=== PATIENT | female | born 1990 ===

== ENCOUNTER 2020-09-01 03:05 | Outpatient (CLI) | payer OTHER ==
[2020-09-01 03:34] VITALS: BP 120/74
== END 2020-09-01 04:25 | disposition home or self-care (01) ==
LOC: TRG 03:05 → APU 03:09 → TRG 04:25
PROVIDERS: ATTEND Obstetrics & Gynecology
DX: O42.913 Preterm premature rupture of membranes, unspecified as to length of time between rupture and onset of labor, third trimester (principal); Z3A.38 38 weeks gestation of pregnancy
CPT/HCPCS: 59025

== ENCOUNTER 2020-09-13 17:53 | Inpatient (IN) | payer OTHER ==
[2020-09-13] MEDS ORDERED: BICITRA ORAL LIQD 30ML PO SCH (19:58)
[2020-09-13] MEDS ORDERED: METOCLOPRAMIDE 10 MG/2 ML INJ IV SCH (19:58)
[2020-09-13] MEDS ORDERED: FAMOTIDINE 20 MG/2 ML INJ IV SCH (19:58)
[2020-09-13] MEDS ORDERED: ceFAZolin/Water 2 GM/20 ML 2 GM/20 ML SYRINGE IV NR (20:00)
[2020-09-13] MEDS ORDERED: OXYTOCIN DRIP 30 UNITS/500 ML BAG IV SCH (20:00)
--- NOTE | 2020-09-13 20:01 | Ultrasound Report ---
ULTRASOUND OBSTETRIC LIMITED ULTRASOUND BIOPHYSICAL PROFILE INDICATION / CLINICAL INFORMATION: Evaluate well being. COMPARISON: None available. FINDINGS: BREATHING MOVEMENT = 0 GROSS BODY MOVEMENT = 2 TONE = 2 QUALITATIVE AMNIOTIC FLUID VOLUME = 2 TOTAL BIOPHYSICAL SCORE = 6/8 AMNIOTIC FLUID INDEX (cm) = 11.2 PRESENTATION: Breech. HEART RATE (beats per minute): 141 ADDITIONAL FINDINGS: None. IMPRESSION: 1. Biophysical Score = 6/8 2. Breech presentation. 3. Normal KELLEY of 11.2 cm. Signer Name: Best Galloway MD Signed: 09/13/2020 7:56 PM Workstation Name: [id number]
--- NOTE | 2020-09-13 20:03 | History and Physical Report ---
History of Present Illness Date of examination: 09/13/20 Date of admission: 09/13/2020 Chief complaint: breech at term History of present illness: 30 yo at 40 weeks gestation c/b hx prior c/s x 1 with successful , Class I Obesity, hx cholecystectomy, posive genetic screening for down syndrome with normal sono presenting from clinic incidental breech presentation for repeat c section. Labs reviewed GBS neg Past History Past Medical History: no pertinent history Past Surgical History: cholecystectomy, section (x1) Family/Genetic History: none Social history: no significant social history - Obstetrical History : 3 Para: 2 Hx # Term Pregnancies: 2 Number of Living Children: 2 Medications and Allergies Allergies Allergy/AdvReac Type Severity Reaction Status Date / Time No Known Allergies Allergy Verified 01/13/14 06:18 Home Medications Medication Instructions Recorded Confirmed Last Taken Type HYDROcodone/APAP 5-325 [[place] 1 each PO Q6HR PRN #20 tablet 01/13/14 09/01/20 Unknown Rx 5-325 mg TAB] Ibuprofen [Motrin] 800 mg PO TID PRN #20 tablet 01/13/14 09/01/20 Unknown Rx Promethazine [Phenergan] 25 mg PO Q6H PRN #20 tablet 01/13/14 09/01/20 Unknown Rx Tamsulosin [Flomax] 0.4 mg PO QDAY #5 cap 01/13/14 09/01/20 Unknown Rx Review of Systems All systems: negative (expect HPI) - Vital Signs Vital signs: Vital Signs Pulse Pulse Ox 110 H 97 09/13/20 18:12 09/13/20 18:12 Temp Pulse Resp BP Pulse Ox 98.6 F 93 H 20 125/73 98 09/13/20 18:14 09/13/20 19:55 09/13/20 18:14 09/13/20 18:14 09/13/20 19:55 - Physical Exam Abdomen: Positive: normal appearance, normal bowel sounds, other (gravid) - Obstetrical FHR: category 1 Uterine Contraction Monitor Mode: External Results All other labs normal. Assessment and Plan - Patient Problems (1) Breech presentation Current Visit: Yes Status: Acute Plan to address problem: Hx c/s x 1 week successful , incidentally found to be breech. KELLEY wnl. However BPP 6/10. Given term gestation, will proceed with delivery --To OR for repeat c section for breech presentation with abnormal BPP --Desires future fertility, consented in the chart
[2020-09-13] MEDS: LACTATED RINGERS 1,000 ML IV SCH ×2 (20:05→21:58)
--- NOTE | 2020-09-13 20:06 | Anesthesia Day of Surgery ---
Anesthesia Day of Surgery - Day of Surgery Patient Examined: Yes Patient H&P Reviewed: Yes Patient is NPO: Yes Beta Blockers: No Cardiac Clearance: No Pulmonary Clearance: No Rito's Test: N/A
[2020-09-13] MEDS ORDERED: NALOXONE 0.4 MG/1 ML INJ IV PRN (20:07)
[2020-09-13] MEDS ORDERED: HYDROmorphone 1 MG/1 ML INJ IV PRN (20:07)
[2020-09-13] MEDS ORDERED: ONDANSETRON 4 MG/2 ML INJ IV PRN (20:07)
--- NOTE | 2020-09-13 20:07 | Anesthesia Consultation ---
Anesthesia Consult and Med Hx Date of service: 09/13/20 - Airway Anesthetic Teeth Evaluation: Good ROM Head & Neck: Adequate Mental/Hyoid Distance: Adequate Mallampati Class: Class II Intubation Access Assessment: Probably Good - Pulmonary Exam CTA: Yes - Cardiac Exam Cardiac Exam: RRR - Pre-Operative Health Status ASA Pre-Surgery Classification: ASA2 Proposed Anesthetic Plan: Spinal - Pre-Anesthesia Comment Pre-Anesthesia Comments: gallbladder, csection 2016, no anesthesia complications - Pulmonary Hx Smoking: No Hx Asthma: No Hx Respiratory Symptoms: No SOB: No COPD: No Home Oxygen Therapy: No Hx Pneumonia: No Hx Sleep Apnea: No - Cardiovascular System Hx Hypertension: No Hx Coronary Artery Disease: No Hx Heart Attack/AMI: No Hx Angina: No Hx Percutaneous Transluminal Coronary Angioplasty (PTCA): No Hx Cardia Arrhythmia: No Hx Pacemaker: No Hx Internal Defibrillator: No Hx Valvular Heart Disease: No Hx Heart Murmur: No Hx Peripheral Vascular Disease: No - Central Nervous System Hx Neuromuscular Disorder: No Hx Seizures: No CVA: No Hx Back Pain: No Hx Psychiatric Problems: No - Gastrointestinal Hx Ulcer: No Hx Gastroesophageal Reflux Disease: Yes - Endocrine Hx Renal Disease: No Hx End Stage Renal Disease: No Hx Cirrhosis: No Hx Liver Disease: No Hx Insulin Dependent Diabetes: No Hx Non-Insulin Dependent Diabetes: No Hx Thyroid Disease: No Hx Hypothyroidism: No Hx Hyperthyroidism: No - Hematic Hx Anemia: No Hx Sickle Cell Disease: No - Other Systems Hx Alcohol Use: No Hx Substance Use: No Hx Cancer: No Hx Obesity: Yes
[2020-09-13 20:32] LABS: Basophils % (Auto) 0.2 % (0.0-1.8); Eosinophils % (Auto) 0.3 % (0.0-4.3); Hematocrit 39.3 % (30.3-42.9); Hemoglobin 13.8 gm/dl (10.1-14.3); Lymphocytes # (Auto) 2.1 K/mm3 (1.2-5.4); Lymphocytes % (Auto) 21.5 % (13.4-35.0); Mean Corpuscular HGB Conc 35 % (30-34); Mean Corpuscular Volume 96 fl (79-97); Monocytes # (Auto) 0.5 K/mm3 (0.0-0.8); Monocytes % (Auto) 5.4 % (0.0-7.3); Platelet Count 117 K/mm3 (140-440); Red Blood Count 4.11 M/mm3 (3.65-5.03); Red Cell Distribution Width 14.1 % (13.2-15.2)
[2020-09-14] MEDS ORDERED: KETOROLAC 30 MG/1 ML INJ ONE (00:02)
[2020-09-14] MEDS ORDERED: BUPIVACAINE/PF (0.5%) 5 MG/1 ML 30 ML VIAL INFILTRATI ONE (00:02)
[2020-09-14] MEDS ORDERED: ONDANSETRON 4 MG/2 ML INJ ONE (00:02)
[2020-09-14] MEDS ORDERED: DEXMEDETOMIDINE 200 MCG/2 ML VIAL IV ONE (00:02)
[2020-09-14] MEDS ORDERED: BUPIVACAINE /DEX-WATER 0.75% (2 ML) AMPULE INFILTRATI ONE (00:07)
[2020-09-14] MEDS ORDERED: LACTATED RINGERS 1000 ML IV SOLN IV ONE (00:14)
[2020-09-14] MEDS ORDERED: ONDANSETRON 4 MG/2 ML INJ IV ONE (00:30)
[2020-09-14] MEDS ORDERED: ceFAZolin/STERILE WATER 2 GM/20 ML SYRINGE IV ONE (00:30)
[2020-09-14] MEDS ORDERED: PHENYLEPHRINE/NS 1,000 MCG/10 ML SYRINGE (OR USE) IV ONE (00:36)
[2020-09-14] MEDS ORDERED: KETOROLAC 30 MG/1 ML INJ IV ONE (01:10)
--- NOTE | 2020-09-14 01:41 | Procedure Note ---
OB Delivery Note - Delivery Date of Delivery: 09/14/20 Surgeon: ELO LYNN JR Estimated blood loss: other (600cc) - Section Preop diagnosis: repeat , breech Postop diagnosis: same section procedure: section, repeat low transverse Disposition: PACU Complications: none Narrative: Indication: 30-year-old at 40 weeks gestation c/b Class I Obesity presenting from clinic with malpresentation for repeat . Findings: Normal uterus, tubes and ovaries. Clear fluid. No nuchal cord. Delivery of male at 0057 Height 19 inches Weight 3307 g Apgars 8/8 EBL 600 cc UOP 100 cc IVF 800 cc Procedure: Patient was taken to the operating room prepped and draped in the usual sterile fashion. Pfannenstiel skin incision was made and carried down to the underlying fascia. Fascia was incised and the incision was distended bilaterally. Rectus fascia was dissected off the rectus muscle superiorly and inferiorly. Peritoneum was identified and entered. Peritoneal incision extended superiorly and inferiorly. The bladder was visualized. The bladder blade was placed. Uterine hysterotomy incision was made and extended bilaterally. The baby was delivered breech starting with the legs, truck, right arm, left arm, then head. Baby was bulb suction at delivery. The cord was cut and clamped and handed off to the team. The placenta was delivered spontaneously. The uterus was exteriorized and cleared of all clots and debris. Uterine incision was closed with a 0 Vicryl in a running locked fashion. Good hemostasis was noted. The urine was noted to be clear. Uterus, tubes, and ovaries were returned to the abdominal cavity. Bilateral gutters were cleared and the abdomen and pelvis were irrigated. Good hemostasis noted. The rectus muscle was reapproximated with 2-0 Vicryl. Attention was directed towards the rectus fascia which was reapproximated with 0 PDS in a running fashion. The subcutaneous tissue was irrigated and reapproximated with 2-0 Vicryl in a running fashion. Skin was closed with a 4-0 Vicryl in a subcuticular fashion. The procedure was completed and the patient tolerated the procedure well. All instruments and lap counts were correct x2. - A at 1 minute: 8 at 5 minutes: 8 Infant Gender: Male
[2020-09-14] MEDS ORDERED: ONDANSETRON 4 MG/2 ML INJ IV PRN (01:42)
[2020-09-14] MEDS ORDERED: MAGNESIUM HYDROXIDE (MOM) ORAL LIQD UDC PO PRN (01:42)
[2020-09-14] MEDS ORDERED: PROMETHAZINE 25 MG RECT SUPP PR PRN (01:42)
[2020-09-14] MEDS ORDERED: NALOXONE 0.4 MG/1 ML INJ IV PRN (01:42)
[2020-09-14] MEDS ORDERED: SENNOSIDES 8.6 MG TAB PO PRN (01:42)
[2020-09-14] MEDS ORDERED: LANOLIN/ZINC/DIMETHICONE (LANSINOH) 7 GM TP PRN (01:42)
[2020-09-14] MEDS ORDERED: HYDROCORTISONE 25 MG RECTAL SUPP PR PRN (01:42)
[2020-09-14] MEDS ORDERED: WITCH HAZEL/ GLYCERIN PAD TP PRN (01:42)
[2020-09-14] MEDS ORDERED: MORPHINE 4 MG/1 ML INJ IV PRN (01:42)
[2020-09-14] MEDS ORDERED: OXYTOCIN DRIP 30 UNITS/500 ML BAG IV SCH (02:00)
--- NOTE | 2020-09-14 02:00 | Progress Note ---
Spinal Anesthesia Block - Spinal Anesthesia Block Start Time: 00:25 Stop Time: 00:28 Performed by:: LINDA NUR Procedure: Patient IDed, H&P reviewed, all questions and concerns were answered, and consent was signed. Timeout was performed at bedside. Patient in sitting position. Sterile prep and drape was performed. [3] ml of 1% lidocaine skin wheal at L[3]- L [4]. Needle introducer advanced. 25 gauge spinal needle advanced. Clear, free flowing CSF. negative blood, negative paresthesia. Spinal dose given. All needles removed. Patient tolerated procedure.
--- NOTE | 2020-09-14 02:02 | Progress Note ---
Subjective Date of service: 09/14/20 Principal diagnosis: Bilateral TAP Block for postop pain Interval history: Patient consented for TAP block for post surgical pain management. Patient identified, monitors placed, and time out performed. TAP identified bilaterally via ultrasound. Skin prepped bilaterally with [chlorhexidine] and [22g stimuplex] needle advanced to the TAP. [Marcaine 0.2% 35ml] injected under ultrasound guidance on the [left] side. [Marcaine 0.2% 35ml] injected under u ltrasound guidance on the [right] side. Negative Aspiration. Objective - Constitutional Vitals: Vital Signs - 12hr 09/13/20 09/13/20 09/13/20 18:12 18:13 18:14 Temperature 98.6 F Pulse Rate 110 H 100 H 103 H Respiratory 20 Rate Blood Pressure 125/73 Blood Pressure 125/73 [Left] O2 Sat by Pulse 97 96 Oximetry 09/13/20 09/13/20 09/13/20 18:17 18:22 18:27 Temperature Pulse Rate 90 95 H 97 H Respiratory Rate Blood Pressure Blood Pressure [Left] O2 Sat by Pulse 97 96 96 Oximetry 09/13/20 09/13/20 09/13/20 18:32 18:37 18:42 Temperature Pulse Rate 103 H 96 H 94 H Respiratory Rate Blood Pressure Blood Pressure [Left] O2 Sat by Pulse 96 96 97 Oximetry 09/13/20 09/13/20 09/13/20 19:35 19:40 19:45 Temperature Pulse Rate 99 H 99 H 103 H Respiratory Rate Blood Pressure Blood Pressure [Left] O2 Sat by Pulse 98 98 98 Oximetry 09/13/20 09/13/20 09/13/20 19:50 19:55 20:00 Temperature Pulse Rate 97 H 93 H 88 Respiratory Rate Blood Pressure Blood Pressure [Left] O2 Sat by Pulse 98 98 98 Oximetry 09/13/20 20:05 Temperature Pulse Rate 100 H Respiratory Rate Blood Pressure Blood Pressure [Left] O2 Sat by Pulse 96 Oximetry - Labs CBC & Chem 7: 09/13/20 20:05 Labs: Abnormal lab results 09/13/20 Range/Units 20:05 MCH 34 H (28-32) pg MCHC 35 H (30-34) % Plt Count 117 L (140-440) K/mm3 Seg Neutrophils % 72.6 H (40.0-70.0) %
--- NOTE | 2020-09-14 02:03 | Post Anesthesia Evaluation ---
- Post Anesthesia Evaluation Patient Participated: Yes Airway Patent: Yes Stable Respiratory Function: Yes Nausea/Vomiting: No Temp > 96.8F: Yes Pain Manageable: Yes Adequeate Hydration: Yes Anesthesia Complications: No Block Receding Appropriately: Yes Patient on Ventilator: No
[2020-09-14] MEDS: KETOROLAC 30 MG/1 ML INJ IV SCH ×2 (09:35→15:27)
[2020-09-14] MEDS ORDERED: FLU VACC QUAD 2020-2021 (6 months +)/PF 60 0.5 ML SYRINGE IM ONE (12:00)
[2020-09-14] MEDS: LACTATED RINGERS 1,000 ML IV SCH (14:01)
[2020-09-14 16:10] LABS: Hematocrit 36.4 % (30.3-42.9)
[2020-09-14] MEDS: oxyCODONE /ACETAMINOPHEN 5-325MG TAB PO PRN (21:52)
[2020-09-15] MEDS: SIMETHICONE 80 MG CHEW TAB PO PRN ×2 (01:46→07:54)
[2020-09-15] MEDS: IBUPROFEN 800 MG TAB PO PRN ×2 (01:46→16:13)
[2020-09-15] MEDS: oxyCODONE /ACETAMINOPHEN 5-325MG TAB PO PRN ×4 (04:15→21:41)
--- NOTE | 2020-09-15 12:53 | Progress Note ---
Assessment and Plan A: Postop Day 1 Headache P: Follow routine postop orders Changed pain medication to Percocet 5mg/325mg 2 tabs PO q 4hrs. If CORRALES is unresolved with Percocet, will consider Anesthesia consult. Subjective - Subjective Date of service: 09/15/20 Principal diagnosis: Postop Day 1 Patient reports: appetite normal, voiding normally, flatus, ambulating normally, other (pt c/o pounding headache onset 9am today, rates pain as 6-7/10. Also c/o 1 episode of nausea, relieved at present.) [place]: doing well, bottle feeding (and ) Objective - Vital Signs Latest vital signs: Vital Signs Temp Pulse Resp BP BP Pulse Ox 09/15/20 08:20 97.7 F 67 20 97/54 09/15/20 00:55 97.7 F 73 18 91/50 96 09/14/20 16:41 98.3 F 76 18 103/64 92 Intake and Output 09/14/20 09/15/20 09/15/20 22:59 06:59 14:59 Intake Total 120 120 240 Output Total 600 900 600 Balance -480 -780 -360 Intake: Oral 120 120 240 Output: Urine 600 900 600 Void 600 900 600 Other: Total, Intake Amount 120 120 240 Total, Output Amount 400 900 600 # Voids Void 1 - Exam Breasts: Present: normal Cardiovascular: Present: Regular rate, Normal S1, Normal S2 Lungs: Present: Clear to auscultation, Normal air movement Abdomen: Present: normal appearance, soft, normal bowel sounds Uterus: Present: normal, firm, fundal height below umbilicus Extremities: Present: normal Incision: Present: dry, dressed
[2020-09-16] MEDS: IBUPROFEN 800 MG TAB PO PRN ×3 (00:20→17:12)
[2020-09-16] MEDS: oxyCODONE /ACETAMINOPHEN 5-325MG TAB PO PRN ×2 (05:53→19:26)
--- NOTE | 2020-09-16 09:57 | Progress Note ---
Assessment and Plan POD # 2 A: S/P repeat c/s C/O dizziness P: Continue monitoring Repeat cbc Encourage ambulation with assist D/C home tomm if stable - Patient Problems (1) S/P repeat low transverse Current Visit: Yes Status: Acute Subjective - Subjective Principal diagnosis: post op day 2 Patient reports: appetite normal, voiding normally, pain well controlled, ambulating normally [place]: doing well, bottle feeding Objective - Vital Signs Latest vital signs: Vital Signs Temp Pulse Resp BP BP Pulse Ox 09/16/20 08:01 97.9 F 67 19 99/57 98 09/16/20 06:53 18 09/16/20 05:53 18 09/16/20 01:20 18 09/16/20 00:32 98.2 F 74 20 102/69 98 09/16/20 00:20 18 09/15/20 22:41 18 09/15/20 21:41 18 09/15/20 15:25 98 F 58 L 20 92/54 Intake and Output 09/15/20 09/16/20 09/16/20 22:59 06:59 14:59 Intake Total 560 360 240 Output Total 400 Balance 160 360 240 Intake: Oral 560 360 240 Output: Urine 400 Void 400 Other: Total, Intake Amount 240 120 240 Total, Output Amount 400 # Voids Void 1 - Exam Breasts: Present: normal Abdomen: Present: normal appearance, soft, normal bowel sounds Vulva: both: normal Uterus: Present: normal, firm, fundal height below umbilicus Extremities: Present: normal Incision: Present: normal, dry, intact
[2020-09-16 11:12] LABS: Basophils % (Auto) 0.3 % (0.0-1.8); Eosinophils # (Auto) 0.1 K/mm3 (0.0-0.4); Eosinophils % (Auto) 1.4 % (0.0-4.3); Hematocrit 37.3 % (30.3-42.9); Hemoglobin 13.1 gm/dl (10.1-14.3); Lymphocytes # (Auto) 2.2 K/mm3 (1.2-5.4); Lymphocytes % (Auto) 35.4 % (13.4-35.0); Mean Corpuscular HGB Conc 35 % (30-34); Mean Corpuscular Volume 95 fl (79-97); Monocytes # (Auto) 0.4 K/mm3 (0.0-0.8); Monocytes % (Auto) 6.3 % (0.0-7.3); Platelet Count 117 K/mm3 (140-440); Red Blood Count 3.91 M/mm3 (3.65-5.03); Red Cell Distribution Width 14.3 % (13.2-15.2)
--- NOTE | 2020-09-16 21:47 | Discharge Summary ---
Providers - Providers Date of Admission: 09/14/20 00:47 Date of discharge: 09/17/20 Attending physician: ELO LYNN JR, MD Primary care physician: NADER العراقي Hospitalization Reason for admission: section Delivery: Procedure: repeat low transverse Episiotomy: none Laceration: none Incision: normal, dry, intact Other procedures: none complications: none Discharge diagnosis: IUP at term delivered baby: male Hospital course: Pt was admitted for a repeat LTCS. She had an uneventful pp stay and was d/cd home in stable condition. See H&P, delivery summary, and PP notes. Condition at discharge: Stable Disposition: DC-01 TO HOME OR SELFCARE - Discharge Diagnoses (1) S/P repeat low transverse Status: Acute Plan - Discharge Medications Prescriptions: Ibuprofen [Motrin 800 MG tab] 800 mg PO Q6H PRN 30 Days tablet PRN Reason: Pain, Mild (1-3) oxyCODONE /ACETAMINOPHEN [Percocet 5/325 mg] 1 tab PO Q6H PRN #30 tablet PRN Reason: Pain, Moderate (4-6) - Provider Discharge Summary Additional instructions: [] Smoking cessation referral if applicable(refer to patient education folder for contact #) [] Refer to [facility]'s [facility] Booklet Call your doctor immediately for: * Fever > 100.5 * Heavy vaginal bleeding ( >1 pad per hour) * Severe persistent headache * Shortness of breath * Reddened, hot, painful area to leg or breast * Drainage or odor from incision. * Keep incision clean and dry at all times and follow doctor's instructions regarding bathing/showering - Follow up plan Follow up: ELO LYNN JR, MD [Staff Physician] - 14 Days
[2020-09-17] MEDS: IBUPROFEN 800 MG TAB PO PRN ×3 (00:51→12:20)
[2020-09-17 13:34] VITALS: BP 126/89
== END 2020-09-17 14:20 | disposition home or self-care (01) | DRG 788 ==
LOC: TRG 17:53 → APU 17:54 → TRG 09-14 00:47 → APU 09-14 00:47 → OB 09-14 03:20
PROVIDERS: ADMIT Obstetrics & Gynecology; ATTEND Obstetrics & Gynecology
PROC: 10D00Z1 Extraction of Products of Conception, Low, Open Approach (ICD-10-PCS; principal; 2020-09-14)
DX: O32.1XX0 Maternal care for breech presentation, not applicable or unspecified (principal); O34.211 Maternal care for low transverse scar from previous cesarean delivery; Z3A.40 40 weeks gestation of pregnancy; Z37.0 Single live birth; Z20.828 Contact with and (suspected) exposure to other viral communicable diseases; O99.214 Obesity complicating childbirth; E66.9 Obesity, unspecified
CPT/HCPCS: 36415; 59025; 76815; 76819; 85014; 85018; 85025; 86850; 86900; 86901; G0378; J0690; J1885; J2370; J2405; J2590; J2765; J3490; J7120; U0003